=== PATIENT | female | born 2000 | race Caucasian/White ===

== ENCOUNTER 2020-08-25 09:32 | Emergency (ER) | payer BC ==
[~2020-08-25] VITALS: Ht 165.1 cm; Wt 84.0 kg
[2020-08-25 09:45] VITALS: BP 129/76
--- NOTE | 2020-08-25 10:10 | RAD ---
Exam performed: Right foot 3 views. Clinical Indication: Injury. Patient's foot hit metal rack. Date of Service:08/25/2020. Comparison :None available Findings: PA, oblique and lateral radiographs of the foot reveal the osseous structures to be intact and well a ligned. The joint spaces are well preserved and the articular margins are smooth. Impression: Radiographically normal osseous structures of the right foot. Electronically signed by: Torrie Almanza MD (08/25/2020 10:08 AM) [id number]
--- NOTE | 2020-08-25 10:20 | PHYS DOC ---
Past History Past Medical History: No Pertinent History Past Surgical History: Smoking: Non-smoker Alcohol Use: None Drug Use: None General Adult EDM: Chief Complaint: TOE PROBLEM HPI: HPI: 20-year-old female presents with right fifth toe pain. The patient was running through target which we ran around the quarter and kicked some kind of a metal display box. She thought the fifth toe on the right foot. This was 2 days ago. Patient had bruising and thought it would get better, but the pain is worse today than it was yesterday. She wants to make sure is not broken. She denies any other injuries or complaints at this time. Review of Systems: Review of Systems: Constitutional: Denies fever or chills Eyes: Denies change in visual acuity HENT: Denies nasal congestion or sore throat Respiratory: Denies cough or shortness of breath Cardiovascular: Denies chest pain or edema GI: Denies abdominal pain, nausea, vomiting, bloody stools or diarrhea : Denies dysuria Musculoskeletal: Right little toe pain Integument: Denies rash Neurologic: Denies headache, focal weakness or sensory changes Endocrine: Denies polyuria or polydipsia Lymphatic: Denies swollen glands Psychiatric: Denies depression or anxiety Allergies: Allergies: Allergies Coded Allergies Type Severity Reaction Last Updated Verified No Known Drug Allergies 01/04/14 No Physical Exam: PE: Constitutional: Well developed, well nourished, no acute distress, non-toxic appearance. [] HENT: Normocephalic, atraumatic, bilateral external ears normal, oropharynx moist, no oral exudates, nose normal. [] Eyes: PERRLA, EOMI, conjunctiva normal, no discharge. [] Neck: Normal range of motion, no tenderness, supple, no stridor. [] Cardiovascular:Heart rate regular rhythm, no murmur [] Lungs & Thorax: Bilateral breath sounds clear to auscultation [] Abdomen: Bowel sounds normal, soft, no tenderness, no masses, no pulsatile masses. [] Skin: Warm, dry, no erythema, no rash. [] Back: No tenderness, no CVA tenderness. [] Extremities: Ecchymosis and mild swelling of the area of the base of the fifth toe on the right foot [] Neurologic: Alert and oriented X 3, normal motor function, normal sensory function, no focal deficits noted. [] Psychologic: Affect normal, judgement normal, mood normal. [] Current Patient Data: Vital Signs: Vital Signs Date Time Temp Pulse Resp B/P (MAP) Pulse Ox O2 Delivery O2 Flow Rate FiO2 08/25/20 09:45 98.2 89 16 129/76 (93) 96 Room Air EKG: EKG: [] Radiology/Procedures: Radiology/Procedures: [] Impressions: Exam performed: Right foot 3 views. Clinical Indication: Injury. Patient's foot hit metal rack. Date of Service:08/25/2020. Comparison :None available Findings: PA, oblique and lateral radiographs of the foot reveal the osseous structures to be intact and well aligned. The joint spaces are well preserved and the articular margins are smooth. Impression: Radiographically normal osseous structures of the right foot. Electronically signed by: Torrie Almanza MD (08/25/2020 10:08 AM) [id number] DICTATED AND SIGNED BY: TORRIE ALMANZA MD DATE: 08/25/20 1007 CC: GRECIA STEPHENSON DO; VENTURA SILVA MD ~MTH0 0 Heart Score: C/O Chest Pain: N/A Risk Factors: Risk Factors: DM, Current or recent (<one month) smoker, HTN, HLP, family history of CAD, obesity. Risk Scores: Score 0 - 3: 2.5% MACE over next 6 weeks - Discharge Home Score 4 - 6: 20.3% MACE over next 6 weeks - Admit for Clinical Observation Score 7 - 10: 72.7% MACE over next 6 weeks - Early Invasive Strategies Course & Med Decision Making: Course & Med Decision Making Pertinent Labs and Imaging studies reviewed. (See chart for details) The patient's x-ray is negative for fracture. I believe she just sprained the toe and has a foot contusion. She is taking ibuprofen but states it is not working very well and she would like something little stronger for pain medicine at least to go to sleep. I will give her a short course of [place] 5/325. She is stable for discharge at this time. [] Dragon Disclaimer: Dragslime Disclaimer: This electronic medical record was generated, in whole or in part, using a voice recognition dictation system. Departure Departure: Impression: Primary Impression: Sprain of toe, fifth, right Additional Impression: Contusion of toe of right foot Disposition: HOME / SELF CARE / HOMELESS Condition: STABLE Referrals: VENTURA SILVA MD (PCP) Patient Instructions: Crush Injury, Fingers or Toes, Gldx-ya-Imto Scripts Hydrocodone/Acetaminophen (Hydrocodone-Acetamin 5-325 mg) 1 Each Tablet 1 EACH PO Q4-6HRS PRN for PAIN, #10 TAB Prov: GRECIA STEPHENSON DO 08/25/20 GRECIA STEPHENSON DO August 25, 2020 10:20
[2020-08-25] MEDS ORDERED: HYDR-2759 PO (10:31)
[2020-08-25] MEDS ORDERED: HYDROcodone/APAP 5/325MG 1 TAB TABLET PO ONE (10:45)
== END 2020-08-25 10:48 | disposition home or self-care (01) ==
LOC: ER 09:32
DX: S93.504A Unspecified sprain of right lesser toe(s), initial encounter (principal); S90.121A Contusion of right lesser toe(s) without damage to nail, initial encounter; W22.8XXA Striking against or struck by other objects, initial encounter; Y93.89 Activity, other specified; Y92.89 Other specified places as the place of occurrence of the external cause; Y99.8 Other external cause status
CPT/HCPCS: 73630; 99283-25